=== PATIENT | male | born 1970 | race Two or more races ===

== ENCOUNTER → 2020-11-27 | Emergency (ER) | payer SELFPAY ==
[~2020-11-27] VITALS: Ht 167.6 cm; Wt 74.8 kg
[~2020-11-27] MED LIST: MORPHINE SULFATE 4 MG/ML SYR/VIAL IV ONE; ONDANSETRON HCL 4 MG/2 ML VIAL IV ONE; TETANUS-DIPTH-ACEL PERTUSSIS 0.5ML SYR Tdap IM ONE
[2020-11-27 13:00] VITALS: BP 135/81
== END | disposition home or self-care (01) ==
LOC: ER 09:02 → EDBD 09:02
DX: S02.32XA Fracture of orbital floor, left side, initial encounter for closed fracture (principal); S09.8XXA Other specified injuries of head, initial encounter; R51.9 Headache, unspecified; W18.09XA Striking against other object with subsequent fall, initial encounter; Y93.89 Activity, other specified; Y92.89 Other specified places as the place of occurrence of the external cause; Y99.8 Other external cause status
CPT/HCPCS: 70450; 71250; 72125; 74176; 93005; 96374; 96375; 99285; J2270; J2405